=== PATIENT | male | born 1970 | race Caucasian/White ===

== ENCOUNTER 2017-07-17 05:25 | Emergency (ER) | payer BC ==
[2017-07-17] MEDS ORDERED: ONDANSETRON HCL IV 4 MG/2 ML VIAL IV ONE (05:44)
[2017-07-17] MEDS ORDERED: 0.9 % SODIUM CHLORIDE 1,000 ML BAG IV ONE ×2 (05:44→06:51)
[2017-07-17] MEDS ORDERED: HYDROMORPHONE HCL 1MG/ML **SYRINGE IVP ONE ×3 (05:45→06:28)
--- NOTE | 2017-07-17 05:49 | Emergency Department Record ---
History of Present Illness - General Chief complaint: Flank Pain Stated complaint: BACK PAIN Time Seen by Provider: 07/17/17 05:40 Source: Patient Mode of Arrival: Ambulatory Limitations: No limitations - History of Present Illness Initial comments: The patient is here due to a one hour hx of R flank pain. The onset was sudden and there is pain traveling around to the R groin and testicle area. He does have mild nausea but no vomiting. The pain is sharp and stabbing and quite severe at times. The patient states he has no hx of similar issues. MD Complaint: Other Onset/Timin -: Hour(s) Location: Right flank Radiation: Other Severity scale (1-10): 8 Quality: Dull Consistency: Constant Reports: Denies other symptoms - Related Data Home Medications Medication Instructions Recorded Confirmed Last Taken Azathioprine [Imuran] 125 mg PO DAILY 07/17/17 07/17/17 Unknown Allergies Allergy/AdvReac Type Severity Reaction Status Date / Time No Known Drug Allergies Allergy Verified 07/17/17 05:28 Travel Screening - Travel/Exposure Within Last 30 Days Have you traveled within the last 30 days?: No - Travel Symptoms Symptom Screening: None Review of Systems Constitutional: Denies: Chills, Fever Eyes: Denies: Eye discharge ENT: Denies: Congestion Respiratory: Denies: Cough Past Medical History - SOCIAL HISTORY Smoking Status: Never smoker - RESPIRATORY Hx Respiratory Disorders: No - CARDIOVASCULAR Hx Cardio Disorders: No - NEURO Hx Neuro Disorders: No - GI Hx GI Disorders: Yes Comment:: Colitis - Hx Genitourinary Disorders: No - ENDOCRINE Hx Endocrine Disorders: No - MUSCULOSKELETAL Hx Musculoskeletal Disorders: No - PSYCH Hx Psych Problems: No - HEMATOLOGY/ONCOLOGY Hx Hematology/Oncology Disorders: No Family Medical History Any Significant Family History?: Yes Hx Heart Disease: Father Physical Exam - General General Appearance: Alert, Cooperative, Mild distress (due to R flank pain.) - Head Head exam: Atraumatic, Normocephalic, Normal inspection - Neck Neck exam: Normal inspection, Full ROM. negative: Tenderness - Respiratory Respiratory exam: Normal lung sounds bilaterally. negative: Respiratory distress - Cardiovascular Cardiovascular Exam: Regular rate, Normal rhythm, Normal heart sounds - GI/Abdominal GI/Abdominal exam: Soft, Normal bowel sounds. negative: Tenderness - Extremities Extremities exam: Normal inspection, Full ROM, Normal capillary refill. negative: Tenderness - Neurological Neurological exam: Alert. negative: Abnormal gait, Motor sensory deficit Course Vital Signs 07/17/17 07/17/17 05:29 05:40 Pulse Rate [ 60 Pulse Ox Probe] Respiratory 18 Rate Blood Pressure 123/81 [Left Arm] Pulse Ox 100 100 - Reevaluation(s) Reevaluation #1: The patient is still in quite a bit of pain so we will give him a 2nd dose of Dilaudid. 07/17/17 06:03 Reevaluation #2: Due to the patient's persistent pain we will be ordering a dose of Toradol even though he did take some Motrin prior to coming to the ER. He does have normal renal function based on his lab results. 07/17/17 06:12 Reevaluation #3: The patient is doing better at this time with his pain control. We are waiting on his UA and CT results. 07/17/17 06:48 The patient's care will be turned over to Dr. Ward at 7am due to shift change. 07/17/17 06:51 Medical Decision Making - Lab Data Result diagrams: 07/17/17 05:30 07/17/17 05:30 Disposition Forms: Patient Portal Access Quality - Quality Measures Quality Measures: N/A - Blood Pressure Screening View Details: Yes Does Patient Have Any of the Following: No Blood Pressure Classification: Pre-Hypertensive BP Reading Systolic Measurement: 132 Diastolic Measurement: 84 Screening for High Blood Pressure: < Pre-Hypertensive BP, F/U Documented > [ G8950] Pre-Hypertensive Follow-up Interventions: Referral to alternative/primary care provider.
[2017-07-17 05:52] LABS: BASO % 0.9 % (0-6); EOS % 1.7 % (0-6); GRAN % 52.4 % (47-80); HEMATOCRIT 42.9 % (42.0-52.0); HEMOGLOBIN 15.2 gm/dl (14.0-18.0); LYMPH % 33.9 % (16-45); MEAN CELL VOLUME 88.8 fl (81-97); MEAN CORPUSCULAR HEMOGLOBIN 31.5 pg (27-33); MEAN CORPUSCULAR HGB CONC 35.4 g/dl (32-36); MEAN PLATELET VOLUME 9.7 fl (7.4-10.4); MONO % 11.1 % (0-9); PLATELET COUNT 235 K/uL (130-400); RED BLOOD COUNT 4.83 M/uL (4.40-5.70); RED CELL DISTRIBUTION WIDTH 12.5 % (11.5-14.5); WHITE BLOOD COUNT W/O DIFF 6.5 K/uL (4.2-12.2)
[2017-07-17 06:03] LABS: ALBUMIN 4.6 gm/dL (3.5-5.0); ALKALINE PHOSPHATASE 77 U/L (38-126); ALT/SGPT 33 U/L (21-72); ANION GAP 14.1 (7-16); AST/SGOT 22 U/L (17-59); BILIRUBIN,TOTAL 1.32 mg/dL (0.2-1.3); BLOOD UREA NITROGEN 17 mg/dL (9-20); CARBON DIOXIDE 22.9 mmol/L (22-30); EST GLOMERULAR FILTRATION RATE > 60 ml/min; GLUCOSE,RANDOM 139 mg/dL (70-110); TOTAL PROTEIN 7.3 gm/dL (6.3-8.2)
[2017-07-17] MEDS ORDERED: KETOROLAC 30 MG/ML VIAL IVP ONE (06:12)
[2017-07-17] MEDS ORDERED: MORPHINE SULFATE 5 MG/ML PFS IVP ONE (06:28)
[2017-07-17] MEDS ORDERED: POTASSIUM CHLORIDE 20 MEQ TABLET PO ONE (06:40)
[2017-07-17] MEDS ORDERED: ONDANSETRON HCL IV 4 MG/2 ML VIAL IVP ONE (07:15)
[2017-07-17] MEDS ORDERED: TAMSULOSIN HCL 0.4 MG CAP.ER.24H PO ONE (07:25)
--- NOTE | 2017-07-17 07:28 | Emergency Department Record ---
History of Present Illness - General Chief complaint: Flank Pain Stated complaint: BACK PAIN Time Seen by Provider: 07/17/17 05:40 Source: Patient Mode of Arrival: Ambulatory Limitations: No limitations - History of Present Illness Onset/Timin -: Hour(s) Location: Right flank Radiation: Other Severity scale (1-10): 8 Quality: Dull Consistency: Constant Reports: Denies other symptoms - Related Data Home Medications Medication Instructions Recorded Confirmed Last Taken Azathioprine [Imuran] 125 mg PO DAILY 07/17/17 07/17/17 Unknown Previous Rx's Medication Instructions Recorded Hydrocodone/Acetaminophen [[place] 1 each PO TID #15 tablet 07/17/17 7.5-325 Tablet] Tamsulosin HCl [Flomax] 0.4 mg PO DAILY #7 cap.er.24h 07/17/17 Tamsulosin HCl [Flomax] 0.4 mg PO DAILY #7 cap.er.24h 07/17/17 Allergies Allergy/AdvReac Type Severity Reaction Status Date / Time No Known Drug Allergies Allergy Verified 07/17/17 05:28 Travel Screening - Travel/Exposure Within Last 30 Days Have you traveled within the last 30 days?: No - Travel Symptoms Symptom Screening: None Review of Systems Constitutional: Denies: Chills, Fever Eyes: Denies: Eye discharge ENT: Denies: Congestion Respiratory: Denies: Cough Gastrointestinal: Reports: Abdominal pain Past Medical History - SOCIAL HISTORY Smoking Status: Never smoker - RESPIRATORY Hx Respiratory Disorders: No - CARDIOVASCULAR Hx Cardio Disorders: No - NEURO Hx Neuro Disorders: No - GI Hx GI Disorders: Yes Comment:: Colitis - Hx Genitourinary Disorders: No - ENDOCRINE Hx Endocrine Disorders: No - MUSCULOSKELETAL Hx Musculoskeletal Disorders: No - PSYCH Hx Psych Problems: No - HEMATOLOGY/ONCOLOGY Hx Hematology/Oncology Disorders: No Family Medical History Any Significant Family History?: Yes Hx Heart Disease: Father Physical Exam - General General Appearance: Alert, Cooperative, No acute distress Limitations: No limitations - Eye Eye exam: Normal appearance - ENT ENT exam: Normal exam Ear exam: Normal external inspection Nasal Exam: Normal inspection Mouth exam: Normal external inspection - GI/Abdominal GI/Abdominal exam: Soft. negative: Tenderness - Rectal Rectal exam: Deferred - exam: Deferred - Neurological Neurological exam: Alert, Oriented X3 - Psychiatric Psychiatric exam: Normal affect, Normal mood - Skin Skin exam: Dry, Intact, Normal color, Warm Course Vital Signs 07/17/17 07/17/17 07/17/17 05:29 05:40 06:32 Temperature Pulse Rate [ 60 64 Pulse Ox Probe] Respiratory 18 16 Rate Blood Pressure 123/81 [Left Arm] Blood Pressure 132/84 [Right Arm] Pulse Ox 100 100 100 07/17/17 06:56 Temperature 97.5 F L Pulse Rate [ Pulse Ox Probe] Respiratory Rate Blood Pressure [Left Arm] Blood Pressure [Right Arm] Pulse Ox - Reevaluation(s) Reevaluation #1: The [facility] CT was reviewed 2mm distal UVJ stone noted The pain is much improved UA is pending 07/17/17 07:04 Reevaluation #2: UA is negative for acute infection or changes. 07/17/17 08:48 The patient is ready for DC We discussed returning for any uncontrolled pain, vomiting or fever. 07/17/17 10:40 Medical Decision Making - Lab Data Result diagrams: 07/17/17 05:30 07/17/17 05:30 Lab Results 07/17/17 07/17/17 Range/Units 05:30 05:30 WBC 6.5 (4.2-12.2) K/uL RBC 4.83 (4.40-5.70) M/uL Hgb 15.2 (14.0-18.0) gm/dl Hct 42.9 (42.0-52.0) % MCV 88.8 (81-97) fl MCH 31.5 (27-33) pg MCHC 35.4 (32-36) g/dl RDW 12.5 (11.5-14.5) % Plt Count 235 (130-400) K/uL MPV 9.7 (7.4-10.4) fl Gran % 52.4 (47-80) % Lymphocytes % 33.9 (16-45) % Monocytes % 11.1 H (0-9) % Eosinophils % 1.7 (0-6) % Basophils % 0.9 (0-6) % Sodium 142 (136-145) mmol/L Potassium 3.1 L (3.5-5.1) mmol/L Chloride 105 (98-107) mmol/L Carbon Dioxide 22.9 (22-30) mmol/L Anion Gap 14.1 (7-16) BUN 17 (9-20) mg/dL Creatinine 1.0 (0.66-1.25) mg/dL Estimated GFR > 60 ml/min Random Glucose 139 H (70-110) mg/dL Calcium 9.2 (8.5-10.1) mg/dL Total Bilirubin 1.32 H (0.2-1.3) mg/dL Direct Bilirubin 0.0 (0-0.3) mg/dL AST 22 (17-59) U/L ALT 33 (21-72) U/L Alkaline Phosphatase 77 (38-126) U/L Total Protein 7.3 (6.3-8.2) gm/dL Albumin 4.6 (3.5-5.0) gm/dL Disposition Disposition: Discharge Clinical Impression: Renal stone Disposition: Home, Self-Care Condition: (1) Good Instructions: Renal Colic (ED) Additional Instructions: Return if you have fever, uncontrolled pain, urinary difficulties or any new concerns. Prescriptions: Hydrocodone/Acetaminophen [[place] 7.5-325 Tablet] 1 each PO TID #15 tablet Tamsulosin HCl [Flomax] 0.4 mg PO DAILY #7 cap.er.24h Tamsulosin HCl [Flomax] 0.4 mg PO DAILY #7 cap.er.24h Forms: Patient Portal Access Time of Disposition: 08:23 Quality - Quality Measures Quality Measures: N/A - Blood Pressure Screening Does Patient Have Any of the Following: No Blood Pressure Classification: Normal BP Reading Systolic Measurement: 116 Diastolic Measurement: 75 Screening for High Blood Pressure: < Normal BP, F/U Not Required > [G8783]
[2017-07-17] MEDS ORDERED: HYDROCODONE/APAP 7.5/325MG TABLET PO ONE (08:11)
[2017-07-17 08:32] LABS: URINE APPEARANCE CLEAR; URINE BILIRUBIN NEGATIVE (NEGATIVE); URINE BLOOD NEGATIVE (NEGATIVE); URINE COLOR YELLOW; URINE GLUCOSE (UA) NEGATIVE (NEGATIVE); URINE KETONE 15 mg/dL (NEGATIVE); URINE LEUKOCYTE ESTERASE NEGATIVE (NEGATIVE); URINE NITRITE NEGATIVE (NEGATIVE); URINE PROTEIN TRACE (NEGATIVE); URINE UROBILINOGEN 0.2 E.U./dL (0.20 - 1.00)
[2017-07-17] MEDS ORDERED: ACETAMINOPHEN 1,000 MG/100 ML BTL IVPB ONE (08:50)
--- NOTE | 2017-07-18 08:10 | CT SCAN REPORT ---
EXAM: ABDOMEN AND PELVIS CT WITHOUT IV CONTRAST HISTORY: ACUTE RIGHT LOWER QUADRANT FLANK PAIN. TECHNIQUE: Contiguous axial images from the lung bases to the symphysis pubis were obtained without IV contrast. Comparison: None. FINDINGS: The lungs are clear. The liver, spleen, adrenals, pancreas and gallbladder are normal. Mild right hydroureteronephrosis with partially obstructing 2 mm calculus at the right ureterovesical junction. Additional nonobstructing 2 mm calculus mid right kidney. Normal left kidney. The visualized loops of small and large bowel are of normal caliber with no bowel wall thickening. No free intraperitoneal fluid or adenopathy. The abdominal wall is unremarkable. The urinary bladder is unremarkable. No lytic or blastic osseous lesion. IMPRESSION: 1. PARTIALLY OBSTRUCTING 2 MM CALCULUS AT THE RIGHT URETEROVESICAL JUNCTION. 2. NONOBSTRUCTING 2 MM RIGHT INTRARENAL CALCULUS. [facility]BER: [id number] [facility]
== END 2017-07-17 10:52 | disposition home or self-care (01) ==
LOC: ER 05:25
DX: N20.0 Calculus of kidney (principal); R10.31 Right lower quadrant pain; R11.0 Nausea
CPT/HCPCS: 99284 ×2; 96376; 96374; 96375; 85025; 80076; 80048; 81003; 74176; J1885; J2405; J1170; J7030